=== PATIENT | female | born 1980 | race Caucasian/White ===

== ENCOUNTER 2022-08-25 14:58 | Observation (INO) ==
--- NOTE | 2022-08-25 17:56 | EKG ---
Test Reason : left side chest pain, hypertensive urgency Blood Pressure : */* mmHG Vent. Rate : 109 BPM Atrial Rate : 109 BPM P-R Int : 128 ms QRS Dur : 80 ms QT Int : 314 ms P-R-T Axes : 34 33 32 degrees QTc Int : 422 ms Sinus tachycardia Otherwise normal ECG No previous ECGs available Confirmed by Scar Drake ([id number]) on 08/26/2022 8:06:53 AM Referred By: Confirmed By: Scar Drake
[2022-08-25 18:39] LABS: BASOPHILS # (AUTO) 0.1 X10^3/uL (0.0-0.1); BASOPHILS % (AUTO) 1.3 % (0.2-1.0); EOSINOPHILS # (AUTO) 0.3 x10^3/uL (0.0-0.2); EOSINOPHILS % (AUTO) 3.8 % (0.9-2.9); HEMATOCRIT 37.6 % (36.0-47.0); HEMOGLOBIN 12.7 g/dL (12.0-16.0); LYMPHOCYTES # (AUTO) 2.1 X10^3/uL (1.3-2.9); LYMPHOCYTES % (AUTO) 26.5 % (21.0-51.0); MEAN CORPUSCULAR HEMOGLOBIN 27.9 pg (27.0-34.0); MEAN CORPUSCULAR HGB CONC 33.8 g/dL (33.0-35.0); MEAN CORPUSCULAR VOLUME 82.6 fL (80.0-100.0); MEAN PLATELET VOLUME 7.7 fL (7.4-11.0); MONOCYTES # (AUTO) 0.6 x10^3/uL (0.3-0.8); MONOCYTES % (AUTO) 7.5 % (0.0-13.0); NEUTROPHILS # (AUTO) 4.8 x10^3/uL (2.2-4.8); NEUTROPHILS % (AUTO) 60.9 % (42.0-75.0); PLATELET COUNT 303 X10^3/uL (150.0-450.0); RED BLOOD COUNT 4.55 X10^6/uL (3.5-5.4); RED CELL DISTRIBUTION WIDTH 14.2 % (11.6-16.5); WHITE BLOOD COUNT 7.9 X10^3/uL (3.6-10.0)
[2022-08-25 18:44] VITALS: BMI 32.9
[2022-08-25 18:56] LABS: ALANINE AMINOTRANSFERASE 23 Units/L (12-78); ALKALINE PHOSPHATASE 89 Units/L (46-116); ASPARTATE AMINO TRANSFERASE 15 Units/L (15-37); BLOOD UREA NITROGEN 7 mg/dL (7-18); CALCIUM 8.7 mg/dL (8.5-10.1); CARBON DIOXIDE 28.3 mmol/L (21-32); CHLORIDE 106 mmol/L (98-107); CREATINE KINASE 93 Units/L (26-192); CREATININE 0.85 mg/dL (0.55-1.02); GLUCOSE 95 mg/dL (65-99); MAGNESIUM 1.7 mg/dL (2.0-2.9); POTASSIUM 3.6 mmol/L (3.5-5.1); SODIUM 142 mmol/L (136-145); TOTAL PROTEIN 7.2 g/dL (6.4-8.2); eGFR NON BLACK RACES > 60 (>60)
[2022-08-25] MEDS: TYLENOL 325 MG TAB PO PRN (18:58)
--- NOTE | 2022-08-25 23:49 | EKG ---
Test Reason : left side chest pain, hypertensive urgency Blood Pressure : */* mmHG Vent. Rate : 80 BPM Atrial Rate : 80 BPM P-R Int : 156 ms QRS Dur : 82 ms QT Int : 362 ms P-R-T Axes : 36 44 42 degrees QTc Int : 417 ms Normal sinus rhythm Normal ECG When compared with ECG of 25-AUG-2022 17:48, (Unconfirmed) No significant change was found Confirmed by Scar Drake ([id number]) on 08/26/2022 8:06:31 AM Referred By: Confirmed By: Scar Drake
--- NOTE | 2022-08-26 05:48 | EKG ---
Test Reason : left side chest pain, hypertensive urgency Blood Pressure : */* mmHG Vent. Rate : 81 BPM Atrial Rate : 81 BPM P-R Int : 146 ms QRS Dur : 80 ms QT Int : 362 ms P-R-T Axes : 39 46 47 degrees QTc Int : 420 ms Normal sinus rhythm Normal ECG When compared with ECG of 25-AUG-2022 23:41, (Unconfirmed) No significant change was found Confirmed by Scar Drake ([id number]) on 08/26/2022 8:06:22 AM Referred By: Confirmed By: Scar Drake
[2022-08-26 06:23] LABS: BASOPHILS # (AUTO) 0.1 X10^3/uL (0.0-0.1); BASOPHILS % (AUTO) 1.9 % (0.2-1.0); EOSINOPHILS # (AUTO) 0.4 x10^3/uL (0.0-0.2); EOSINOPHILS % (AUTO) 6.3 % (0.9-2.9); HEMOGLOBIN 12.3 g/dL (12.0-16.0); LYMPHOCYTES # (AUTO) 1.8 X10^3/uL (1.3-2.9); LYMPHOCYTES % (AUTO) 28.5 % (21.0-51.0); MEAN CORPUSCULAR HEMOGLOBIN 27.9 pg (27.0-34.0); MEAN CORPUSCULAR HGB CONC 34.1 g/dL (33.0-35.0); MEAN PLATELET VOLUME 7.9 fL (7.4-11.0); MONOCYTES # (AUTO) 0.6 x10^3/uL (0.3-0.8); MONOCYTES % (AUTO) 8.9 % (0.0-13.0); NEUTROPHILS # (AUTO) 3.4 x10^3/uL (2.2-4.8); NEUTROPHILS % (AUTO) 54.4 % (42.0-75.0); PLATELET COUNT 266 X10^3/uL (150.0-450.0); RED BLOOD COUNT 4.39 X10^6/uL (3.5-5.4); WHITE BLOOD COUNT 6.2 X10^3/uL (3.6-10.0)
[2022-08-26 06:45] LABS: ALANINE AMINOTRANSFERASE 20 Units/L (12-78); ALBUMIN 3.4 g/dL (3.4-5.0); ALKALINE PHOSPHATASE 82 Units/L (46-116); ASPARTATE AMINO TRANSFERASE 15 Units/L (15-37); BLOOD UREA NITROGEN 9 mg/dL (7-18); CALCIUM 8.5 mg/dL (8.5-10.1); CHLORIDE 107 mmol/L (98-107); CREATININE 0.73 mg/dL (0.55-1.02); GLUCOSE 94 mg/dL (65-99); POTASSIUM 3.5 mmol/L (3.5-5.1); SODIUM 143 mmol/L (136-145); TOTAL PROTEIN 6.4 g/dL (6.4-8.2); eGFR NON BLACK RACES > 60 (>60)
[2022-08-26] MEDS: TYLENOL 325 MG TAB PO PRN (06:59)
[2022-08-26] MEDS ORDERED: ZANAFLEX PO PRN (08:20)
[2022-08-26] MEDS ORDERED: NORCO 5/325 MG TAB PO ONE (08:43)
[2022-08-26] MEDS ORDERED: POTASSIUM CHL 40 MEQ/NS 0.45% 500 ML IV PRN (08:51)
[2022-08-26] MEDS ORDERED: K-RIDER 10 MEQ/NS 100 ML 10 MEQ/100 ML BAG IV PRN (08:51)
[2022-08-26] MEDS ORDERED: POTASSIUM CHLORIDE LIQ 20 MEQ UDC PO PRN (08:51)
[2022-08-26] MEDS ORDERED: POTASSIUM CHL 60 MEQ/NS 0.45% 500 ML IV PRN (08:51)
[2022-08-26] MEDS ORDERED: K-DUR TAB 20 MEQ PO PRN (08:51)
[2022-08-26] MEDS ORDERED: KLOR-CON PO PRN (08:51)
[2022-08-26] MEDS ORDERED: MICRO K EXTEN CAP 10 MEQ PO PRN (08:51)
[2022-08-26] MEDS ORDERED: NS 100 ML IV 100 ML ONE (10:00)
[2022-08-26] MEDS: ROCEPHIN VIAL 1 GRAM 1 G in NS 100 ML IV 100 ML IV SCH (10:09)
[2022-08-26] MEDS: TOPAMAX PO SCH ×2 (10:10→21:26)
[2022-08-26] MEDS: PriLOSEC PO SCH (10:11)
[2022-08-26 12:04] LABS: BILIRUBIN,URINE NEGATIVE (NEGATIVE); BLOOD/HEMOGLOBIN,URINE NEGATIVE (NEGATIVE); GLUCOSE, URINE NEGATIVE (NEGATIVE); KETONES,URINE NEGATIVE (NEGATIVE); LEUKOCYTE ESTERASE ,URINE NEGATIVE (NEGATIVE); NITRITES,URINE NEGATIVE (NEGATIVE); PROTEIN,URINE 1+ (NEGATIVE); UROBILINOGEN,URINE NORMAL (NORMAL)
[2022-08-26 12:13] LABS: APPEARANCE,URINE CLEAR (CLEAR); COLOR,URINE YELLOW (YELLOW)
[2022-08-26 12:14] LABS: BACTERIA,URINE NEGATIVE /HPF (NEGATIVE); RBC,URINE 0-2 /HPF (0-3); SQUAMOUS EPITHELIAL CELL,UR RARE /HPF (NEGATIVE)
[2022-08-26] MEDS: MAGNESIUM SULFATE 1 GRAM/100 mL PREMIX 1 G/100 ML BAG IV PRN ×2 (12:55→14:33)
[2022-08-26] MEDS: ZESTRIL TAB 5 MG PO SCH (13:08)
[2022-08-26] MEDS: LOPRESSOR TAB 25 MG PO SCH ×2 (13:08→21:26)
[2022-08-26] MEDS ORDERED: TORADOL 15 MG VIAL IVP PRN (13:21)
--- NOTE | 2022-08-26 13:43 | DR.H&P ---
H&P - History & Physical for Day of: H&P Date: 08/25/22 - Chief Complaint Chief Complaint: SYNCOPE, HIGH BLOOD PRESSURE, SOB - History of Present Illness History of Present Illness: 42 WF, DIRECT ADMIT FROM DR AUGUSTINE OFFICE WITH HYPERTENSIVE URGENCY. PT BP WAS 182/106 IN THE OFFICE. PT HAD TAKEN METOPROLOL THIS AM. PT HAD A SYNCOPAL EPISODE THIS WEEKEND AND WAS SEEN IN THE ER IN [place]. PT HAD CT HEAD AT [facility]. PT REPORT SHES HAD INTRACTABLE MENDOZA X 1 WEEK. PT CO SOB, WORSE WITH EXERTION AND CO LEFT SIDE NECK PAIN AND LEFT ARM - Past Medical History Past Medical History: Hypertension, Asthma - Past Surgical History Surgical History: Appendectomy, Hysterectomy - Family History Family Medical History: Diabetes Mellitus, Coronary Artery Disease, Hypertension - Social History Does patient currently use any type of tobacco product: Yes Have you used tobacco products in the last 12 months: Yes Type of Tobacco Use: Cigarettes Does any household member use tobacco: (LIVES ALONE) Alcohol Use: None Drug Use: None - Medications Home Medications: Fish Containing Products Allergy (Severe, Verified 08/25/22 18:47) shrimp Allergy (Severe, Verified 08/25/22 18:47) azithromycin [From Zithromax] Allergy (Intermediate, Verified 08/25/22 18:47) Penicillins Allergy (Verified 01/31/20 16:28) prednisone Allergy (Verified 01/31/20 16:28) Sulfa (Sulfonamide Antibiotics) [SULFA] Allergy (Verified 01/31/20 16:28) CONTINUE taking the following medications amitriptyline 10 mg tablet 1 tab PO QPM 08/25/22 [History] metoprolol tartrate 25 mg tablet 1 tab PO BID 08/25/22 [History] omeprazole 40 mg capsule,delayed release 1 cap PO QDAY 08/25/22 [History] - Review of Systems Constitutional: Weakness Eyes: No Symptoms Reported ENT: No Symptoms Reported Respiratory: Shortness of Breath Cardiovascular: No Symptoms Reported Gastrointestinal: Nausea Genitourinary: No Symptoms Reported Musculoskeletal: Neck Pain Skin: No Symptoms Reported Neurological: Other (HEADACHE) - Physical Exam Vital Signs: Temperature 97.7 F Pulse Rate [Left] 74 Respiratory Rate 22 Blood Pressure [Left Arm] 125/82 Blood Pressure 131/87 O2 Sat by Pulse Oximetry 98 Oriented: Normal Eyes: Normal Ear: Normal Nose: Normal Throat: Normal Respiratory: RLL Diminished, LLL Diminished : Normal Auscultation: Bowel Sounds: Normal Palpation: Normal Skin: Decreased Turgur Musculoskeletal: Back:Lumbar Psychiatric: Anxiety Mood Description: Anxious Affect: Anxious Speech Pattern: Clear, Appropriate - Assessment/Plan (1) Hypertensive urgency Status: Acute Plan: ADMIT, EKG AND CE ON ADMISSION. IV HYDRATION, PAIN CONTROL. BP CONTROL, PRN SUPPLEMENTAL O2 (2) Dizziness and giddiness Status: Acute (3) Chest pain Status: Acute (4) Syncope Status: Acute - Allergies Allergies/Adverse Reactions: Allergies Allergy/AdvReac Type Severity Reaction Status Date / Time Fish Containing Products Allergy Severe Verified 08/25/22 18:47 shrimp Allergy Severe Verified 08/25/22 18:47 azithromycin [From Zithromax] Allergy Intermediate Verified 08/25/22 18:47 Penicillins Allergy Verified 01/31/20 16:28 prednisone Allergy Verified 01/31/20 16:28 Sulfa (Sulfonamide Allergy Verified 01/31/20 16:28 Antibiotics) [SULFA]
--- NOTE | 2022-08-26 16:34 | RAD ---
HISTORYHypertension, chest painSTUDYTwo-view [id number] trachea is midline. The cardiac silhouette is unremarkable . The lungs are clear without focal infiltrate or effusion. The bony thorax is unremarkable.IMPRESSIONNo acute cardiopulmonary disease.Electronically signed by: MYKEL DOMINGUEZ (August 26, 2022 16:33:55)
--- NOTE | 2022-08-26 16:35 | RAD ---
HISTORYHypertension, chest painSTUDYFive view cervical spineCOMPARISONNoneFINDINGSAP and lateral radiographs of the cervical spine demonstrate normal alignment from the craniocervical junction to the level of T1. The central canal appears patent without posterior element abnormality. No prevertebral soft tissue swelling can be identified. The odontoid appears intact. The lateral masses of C1 align with the body of C2.IMPRESSIONUnremarkable examination of the cervical spine.Electronically signed by: MYKEL DOMINGUEZ (August 26, 2022 16:34:18)
--- NOTE | 2022-08-26 16:35 | RAD ---
HISTORYHypertension, chest painSTUDYThree views left shoulderCOMPARISONNoneFINDINGSThe appearance of the clavicle and AC joint are unremarkable. The glenohumeral articulation is normal in its appearance. No acute cortical disruption or dislocation can be identified. The visualized portions of the scapula are unremarkable. In addition, the visualized portions of the chest appear unremarkable.IMPRESSIONNegative examElectronically signed by: MYKEL DOMINGUEZ (August 26, 2022 16:34:41)
--- NOTE | 2022-08-26 18:24 | PCM.PROG ---
Progress Note - Progress Note for Day of Date of Exam: 08/26/22 - Subjective Subjective: PT IS 42 WF, DIRECT ADMIT FROM DR AUGUSTINE OFFICE WITH HYPERTENSIVE URGENCY AND HX OF SYNCOPE. PT HAD A CT OF HEAD AT [facility] ON 08/23 WITHOUT ACUTE FINDINGS. PT CO CONTINUED MENDOZA WITH RESOLUTION IN UNSTABLE BLOOD PRESSURE. PT HAD CE AND EKG, STABLE AND RESULTS REVIEWED WITH PT. CXR OBTAINED THIS AM AND CONTINUED WITH BP CONTROL ADDING LISINOPRIL 5MG PO DAILY. WILL ORDER MRI OF BRAIN AND AM FASTING LIPID PAIN. PLAN TO CONTINUE WITH MAGNESIUM REPLACEMENT. - Past Medical Family Social History Past Med/Fam/Surg Hx: No changes since H&P Allergies: Allergies Fish Containing Products Allergy (Severe, Verified 08/25/22 18:47) shrimp Allergy (Severe, Verified 08/25/22 18:47) azithromycin [From Zithromax] Allergy (Intermediate, Verified 08/25/22 18:47) Penicillins Allergy (Verified 01/31/20 16:28) prednisone Allergy (Verified 01/31/20 16:28) Sulfa (Sulfonamide Antibiotics) [SULFA] Allergy (Verified 01/31/20 16:28) - Review of Systems ROS: No change since H&P - Vital Signs and I&O's Vital Signs: Temperature 97.7 F Pulse Rate [Left] 76 Respiratory Rate 20 Blood Pressure [Left Arm] 126/82 Blood Pressure 131/87 O2 Sat by Pulse Oximetry 97 Intake and Output: Intake & Output 08/24/22 08/25/22 08/26/22 08/27/22 11:59 11:59 11:59 11:59 Intake Total 180 / 180 358 / 358 Balance 180 / 180 358 / 358 - Physical Exam Oriented: Normal Eyes: Normal Ear: Normal Nose: Normal Throat: Normal Respiratory: Diminished : Normal Auscultation: Bowel Sounds: Normal Skin: Decreased Turgur Musculoskeletal: Back:Lumbar Psychiatric: Anxiety Mood Description: Anxious Affect: Anxious Speech Pattern: Clear, Appropriate - Laboratory and Diagnostics Result Diagrams: 08/26/22 05:39 08/26/22 12:50 Labs: Laboratory WBC 6.2 X10^3/uL (3.6-10.0) 08/26/22 05:39 RBC 4.39 X10^6/uL (3.5-5.4) 08/26/22 05:39 Hgb 12.3 g/dL (12.0-16.0) 08/26/22 05:39 Hct 36.0 % (36.0-47.0) 08/26/22 05:39 MCV 82.0 fL (80.0-100.0) 08/26/22 05:39 MCH 27.9 pg (27.0-34.0) 08/26/22 05:39 MCHC 34.1 g/dL (33.0-35.0) 08/26/22 05:39 RDW 14.0 % (11.6-16.5) 08/26/22 05:39 Plt Count 266 X10^3/uL (150.0-450.0) 08/26/22 05:39 MPV 7.9 fL (7.4-11.0) 08/26/22 05:39 Neut % (Auto) 54.4 % (42.0-75.0) 08/26/22 05:39 Lymph % (Auto) 28.5 % (21.0-51.0) 08/26/22 05:39 [place] % (Auto) 8.9 % (0.0-13.0) 08/26/22 05:39 Eos % (Auto) 6.3 % (0.9-2.9) H 08/26/22 05:39 Baso % (Auto) 1.9 % (0.2-1.0) H 08/26/22 05:39 Neut # (Auto) 3.4 x10^3/uL (2.2-4.8) 08/26/22 05:39 Lymph # (Auto) 1.8 X10^3/uL (1.3-2.9) 08/26/22 05:39 [place] # (Auto) 0.6 x10^3/uL (0.3-0.8) 08/26/22 05:39 Eos # (Auto) 0.4 x10^3/uL (0.0-0.2) H 08/26/22 05:39 Baso # (Auto) 0.1 X10^3/uL (0.0-0.1) 08/26/22 05:39 Absolute Nucleated RBC 0.1 /100WBC 08/26/22 05:39 D-Dimer 0.27 ug/ml (0.0-0.57) 08/26/22 08:30 Sodium 143 mmol/L (136-145) 08/26/22 05:39 Corrected Sodium TNP 08/26/22 05:39 Potassium 3.8 mmol/L (3.5-5.1) 08/26/22 12:50 Chloride 107 mmol/L (98-107) 08/26/22 05:39 Carbon Dioxide 28.0 mmol/L (21-32) 08/26/22 05:39 BUN 9 mg/dL (7-18) 08/26/22 05:39 Creatinine 0.73 mg/dL (0.55-1.02) 08/26/22 05:39 Est GFR (MDRD) Af Amer > 60 (>60) 08/26/22 05:39 Est GFR (MDRD) Non-Af > 60 (>60) 08/26/22 05:39 Glucose 94 mg/dL (65-99) 08/26/22 05:39 Calcium 8.5 mg/dL (8.5-10.1) 08/26/22 05:39 Corrected Calcium TNP 08/26/22 05:39 Magnesium 1.8 mg/dL (2.0-2.9) L 08/26/22 05:39 Total Bilirubin 0.20 mg/dL (0.2-1.0) 08/26/22 05:39 AST 15 Units/L (15-37) 08/26/22 05:39 ALT 20 Units/L (12-78) 08/26/22 05:39 Alkaline Phosphatase 82 Units/L (46-116) 08/26/22 05:39 Creatine Kinase 77 Units/L (26-192) 08/26/22 05:39 Troponin I High Sens 4.0 ng/L (4.0-60.0) 08/26/22 05:39 Total Protein 6.4 g/dL (6.4-8.2) 08/26/22 05:39 Albumin 3.4 g/dL (3.4-5.0) 08/26/22 05:39 Globulin 3.0 g/dL (2.5-4.5) 08/26/22 05:39 Albumin/Globulin Ratio 1.1 Ratio (1.1-2.1) 08/26/22 05:39 Specimen Type Clean catch urine 08/26/22 11:47 Urine Color Yellow (YELLOW) 08/26/22 11:47 Urine Appearance Clear (CLEAR) 08/26/22 11:47 Urine pH 6.0 (5.0 - 8.0) 08/26/22 11:47 Ur Specific [place] 1.020 (1.000-1.030) 08/26/22 11:47 Urine Protein 1+ (NEGATIVE) 08/26/22 11:47 Urine Glucose (UA) Negative (NEGATIVE) 08/26/22 11:47 Urine Ketones Negative (NEGATIVE) 08/26/22 11:47 Urine Blood Negative (NEGATIVE) 08/26/22 11:47 Urine Nitrite Negative (NEGATIVE) 08/26/22 11:47 Urine Bilirubin Negative (NEGATIVE) 08/26/22 11:47 Urine Urobilinogen Normal (NORMAL) 08/26/22 11:47 Ur Leukocyte Esterase Negative (NEGATIVE) 08/26/22 11:47 Urine RBC 0-2 /HPF (0-3) 08/26/22 11:47 Urine WBC 0-2 /HPF (0-5) 08/26/22 11:47 Ur Squamous Epith Cells Rare /HPF (NEGATIVE) 08/26/22 11:47 Urine Bacteria Negative /HPF (NEGATIVE) 08/26/22 11:47 Ur Culture Indicated? No/not indicated 08/26/22 11:47 SARS-CoV-2 (PCR) Negative (NEGATIVE) 08/26/22 10:20 Influenza Type A (PCR) Negative (NEGATIVE) 08/26/22 10:20 Influenza Type B (PCR) Negative (NEGATIVE) 08/26/22 10:20 RSV (PCR) Negative (NEGATIVE) 08/26/22 10:20 - Plan (1) Hypertensive urgency Status: Acute Plan: EKG AND CE ON ADMISSION. IV HYDRATION, PAIN CONTROL. BP CONTROL, PRN SUPPLEMENTAL O2 (2) Dizziness and giddiness Status: Acute (3) Chest pain Status: Acute (4) Syncope Status: Acute
[2022-08-26] MEDS ORDERED: ELAVIL PO SCH (21:00)
[2022-08-27 06:57] LABS: BASOPHILS # (AUTO) 0.1 X10^3/uL (0.0-0.1); BASOPHILS % (AUTO) 1.1 % (0.2-1.0); EOSINOPHILS # (AUTO) 0.3 x10^3/uL (0.0-0.2); EOSINOPHILS % (AUTO) 6.1 % (0.9-2.9); HEMATOCRIT 36.8 % (36.0-47.0); HEMOGLOBIN 12.4 g/dL (12.0-16.0); LYMPHOCYTES # (AUTO) 1.8 X10^3/uL (1.3-2.9); LYMPHOCYTES % (AUTO) 31.5 % (21.0-51.0); MEAN CORPUSCULAR HEMOGLOBIN 27.8 pg (27.0-34.0); MEAN CORPUSCULAR HGB CONC 33.6 g/dL (33.0-35.0); MEAN CORPUSCULAR VOLUME 82.6 fL (80.0-100.0); MEAN PLATELET VOLUME 8.3 fL (7.4-11.0); MONOCYTES # (AUTO) 0.5 x10^3/uL (0.3-0.8); MONOCYTES % (AUTO) 9.7 % (0.0-13.0); NEUTROPHILS # (AUTO) 2.9 x10^3/uL (2.2-4.8); NEUTROPHILS % (AUTO) 51.6 % (42.0-75.0); PLATELET COUNT 243 X10^3/uL (150.0-450.0); RED BLOOD COUNT 4.45 X10^6/uL (3.5-5.4); RED CELL DISTRIBUTION WIDTH 13.8 % (11.6-16.5); WHITE BLOOD COUNT 5.6 X10^3/uL (3.6-10.0)
[2022-08-27 07:01] LABS: ALANINE AMINOTRANSFERASE 19 Units/L (12-78); ALBUMIN 3.3 g/dL (3.4-5.0); ALKALINE PHOSPHATASE 78 Units/L (46-116); ASPARTATE AMINO TRANSFERASE 15 Units/L (15-37); BLOOD UREA NITROGEN 11 mg/dL (7-18); CALCIUM 8.3 mg/dL (8.5-10.1); CARBON DIOXIDE 27.8 mmol/L (21-32); CHLORIDE 106 mmol/L (98-107); CHOL/HDL RATIO 3.7 (0.0-5.0); CHOLESTEROL 168 mg/dL (0-200); COR CA(FOR HYPOALB) 8.9 mg/dL (8.5-10.1); CREATININE 0.77 mg/dL (0.55-1.02); GLUCOSE 88 mg/dL (65-99); HDL CHOLESTEROL 45 mg/dL (40-60); MAGNESIUM 2.1 mg/dL (2.0-2.9); SODIUM 141 mmol/L (136-145); TOTAL PROTEIN 6.2 g/dL (6.4-8.2); TRIGLYCERIDES 255 mg/dL (0-150); eGFR NON BLACK RACES > 60 (>60)
[2022-08-27] MEDS: TOPAMAX PO SCH (08:45)
[2022-08-27] MEDS: PriLOSEC PO SCH (08:45)
[2022-08-27] MEDS: ROCEPHIN VIAL 1 GRAM 1 G in NS 100 ML IV 100 ML IV SCH (08:46)
[2022-08-27] MEDS: LOPRESSOR TAB 25 MG PO SCH (08:47)
[2022-08-27] MEDS: ZESTRIL TAB 5 MG PO SCH (08:47)
[2022-08-27 12:18] VITALS: BP 137/84
== END 2022-08-27 13:50 | disposition home or self-care (01) ==
LOC: MED/SURG
PROVIDERS: ADMIT Internal Medicine; ATTEND Internal Medicine
DX: Z20.822 Contact with and (suspected) exposure to COVID-19; R07.89 Other chest pain; R55 Syncope and collapse; M54.2 Cervicalgia; M79.602 Pain in left arm; R51.9 Headache, unspecified; I16.0 Hypertensive urgency; R06.02 Shortness of breath; I10 Essential (primary) hypertension; R42 Dizziness and giddiness